=== PATIENT | female | born 1965 | race Caucasian/White ===

== ENCOUNTER 2022-12-21 08:42 | Outpatient (AMB) | payer OTHER, SELFPAY ==
--- NOTE | 2022-12-21 10:08 | AM.OFFWIN_ITS ---
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 She reports she pulled a hang nail off last week, and then over the next few days developed redness, and some pus drainage from that site. Denies any fever or chills. She reports she was able to drain the site, however there is now down redness extending up finger to 1st knuckle. [facility] Social History Patient Tobacco Use Status: Current everyday Tobacco user Review of Systems Const All systems reviewed & are unremarkable except as noted in HPI and below Physical Exam Vital Signs: Last Vital Signs Temp 97.0 F 12/21/22 10:09 Pulse 89 12/21/22 10:09 BP 110/78 12/21/22 10:09 Pulse Ox 100 12/21/22 10:09 Oxygen Delivery Method Room Air 12/21/22 10:09 BMI result Body Mass Index 31.4 Const General: cooperative, healthy appearing and no acute distress Resp Effort & Inspection: normal respiratory effort Extrem Other: Erythema at base of right 4th finger nail bed, extending to 1st knuckle/distal phalanges. No drainable abscess, no fluctuant, no excessive warmth. Normal range of motion all fingers Psych Appearance: grossly normal Mental Status: mental status grossly normal Speech and movement: Normal speech and movement present Assessment & Plan Assessment & Plan (1) Cellulitis of right ring finger: Code(s): L03.011 - Cellulitis of right finger Plan: No drainable abscess at this time. Per patient, erythema is spreading up finger. Will treat with Bactrim x5 days for cellulitis given previous purulent drainage. Advised her to apply warm compresses as needed. Reviewed larisa cations, use, possible side effects of medication. Advised her to return to the clinic if she does not improve with treatment, or if symptoms worsen, or abscess develops. She verbalizes understanding and agrees to plan. Medications: New sulfamethoxazole-trimethoprim 800-160 mg 1 tab PO BID 10 tabs 0RF 5 days L03.011 - Cellulitis of right finger Coding Level of Care Code Est Pt Level 3 (06591) Diagnoses Cellulitis of right ring finger L03.011
[2022-12-21 10:09] VITALS: BP 110/78; PULSE 89; TEMP 36.1; O2SAT 100; BMI 31.4
== END 2022-12-21 10:29 | disposition home or self-care (01) ==
PROVIDERS: Visit Provider Nurse Practitioner Family
DX: L03.011 Cellulitis of right finger (principal)
CPT/HCPCS: 99213